=== PATIENT | female | born 1975 | race American Indian/Alaskan Native ===

== ENCOUNTER 2021-05-01 11:30 | Emergency (ER) | payer OTHER ==
[~2021-05-01] VITALS: Ht 154.9 cm; Wt 68.0 kg
[2021-05-01] MEDS ORDERED: IBUP400 PO (11:43)
[2021-05-01] MEDS ORDERED: HYDR1TAB94 PO (12:46)
== END 2021-05-01 12:59 | disposition home or self-care (01) ==
LOC: ER 11:30
DX: S49.91XA Unspecified injury of right shoulder and upper arm, initial encounter (principal); F17.210 Nicotine dependence, cigarettes, uncomplicated; X50.0XXA Overexertion from strenuous movement or load, initial encounter
CPT/HCPCS: 73030; 96372; 99283-25; J1885

== ENCOUNTER 2023-10-19 16:12 | Emergency (ER) | payer SELFPAY ==
[~2023-10-19] VITALS: Ht 154.9 cm; Wt 63.5 kg
[~2023-10-19 16:12] MED LIST: HYDR1TAB94 PO; IBUP400 PO
[2023-10-19 16:55] LABS: Albumin, Blood 3.2 g/dL (3.4-5.0); Albumin/Globulin Ratio 0.8 (0.8-1.8); Bilirubin, Total 1.2 mg/dL (0.1-1.0); Bun/Creatinine Ratio 3.9 (12.0-20.0); Calcium, Blood 8.8 mg/dL (8.5-10.1); Creatinine, Blood 0.52 mg/dL (0.40-1.00); Potassium, Blood 2.8 mmol/L (3.5-5.5); Total Protein, Blood 7.2 g/dL (6.4-8.2)
[2023-10-19] MEDS ORDERED: Aspirin 325 MG Tab PO ONE (16:55)
[2023-10-19 17:04] LABS: BASOPHILS ABSOLUTE AUTO 0.06 K/mm3 (0.00-0.23); BASOPHILS PERCENT AUTO 1 % (0-2); EOSINOPHILS ABSOLUTE AUTO 0.02 K/mm3 (0.00-0.68); EOSINOPHILS PERCENT AUTO 0 % (0-6); IMMATURE GRAN ABSOLUTE AUTO 0.02 K/mm3 (0.00-0.10); IMMATURE GRAN PERCENT AUTO 0 % (0-1); LYMPHOCYTES ABSOLUTE AUTO 4.09 K/mm3 (0.84-5.20); LYMPHOCYTES PERCENT AUTO 41 % (21-46); MONOCYTES ABSOLUTE AUTO 0.62 K/mm3 (0.16-1.47); MONOCYTES PERCENT AUTO 6 % (4-13); Mean Corpuscular HGB 38.9 pg (26.0-34.0); Mean Corpuscular HGB Conc 37.5 g/dL (31.5-36.5); Mean Corpuscular Volume 104 fL (80-100); Mean Platelet Volume 9.4 fL (9.1-12.4); NEUTROPHILS ABSOLUTE AUTO 5.19 K/mm3 (1.96-9.15); NEUTROPHILS PERCENT AUTO 52 % (41-73); Platelet Count 370 K/mm3 (150-400); RDW Coefficient Variation 13.9 % (11.7-14.2); RDW Standard Deviation 53.5 fL (35.1-46.3); Red Blood Cell Count 3.86 M/mm3 (3.80-5.20)
[2023-10-19] MEDS ORDERED: Lidocaine 2% Viscous Soln 15 ML UDC PO ONE (17:10)
[2023-10-19] MEDS ORDERED: Mag Hydrox/AL Hydrox/Simeth 30 ML UDC PO ONE (17:10)
[2023-10-19] MEDS ORDERED: Potassium Chloride 20 MEQ TabCR PO ONE (18:40)
[2023-10-19] MEDS ORDERED: Potassium Chl 20MEQ/Water100ML 100 ML IV ONE (18:40)
[2023-10-19] MEDS ORDERED: NS 1,000 ML IV ONE (18:53)
[2023-10-19 20:45] VITALS: BP 109/83
[2023-10-19 21:40] LABS: Calcium, Ionized (POC) 1.05 mmol/L (1.10-1.46); Chloride (POC) 98 mmol/L (98-108); Creatinine (POC) 0.5 mg/dL (0.6-1.0); Glucose (ISTAT POC) 109 mg/dL (70-99); Hemoglobin (POC) 13.6 g/dL (12.0-16.0); Potassium (POC) 3.6 mmol/L (3.5-5.5); Sodium (POC) 136 mmol/L (135-148); Total CO2 (POC) 26 mmol/L (21-32)
== END 2023-10-19 22:15 | disposition home or self-care (01) ==
LOC: ER 16:12
PROVIDERS: Student in an Organized Health Care Education/Training Program
DX: K30 Functional dyspepsia (principal); E87.6 Hypokalemia; F17.210 Nicotine dependence, cigarettes, uncomplicated
CPT/HCPCS: 71046; 80047; 80053; 83690; 84484; 85014; 85025; 93005; 93010; 96365; 96366; 99285-25; A9270; J3480; J7030